=== PATIENT | female | born 1985 | race Caucasian/White ===

== ENCOUNTER 2016-10-01 01:58 | Emergency (ER) | payer MEDICAID, OTHER ==
[2016-10-01 02:17] VITALS: TEMP 97.5
--- NOTE | 2016-10-01 02:17 | C.PDOC ---
History Of Present Illness 31 year old female presents to the ED with complaints of chest palpitations. Patient states she took espresso today but denies chest pain. Chief Complaint (Nursing): Palpitations History Per: Patient History/Exam Limitations: no limitations Onset/Duration Of Symptoms: Hrs Current Symptoms Are (Timing): Still Present Recent travel outside of the [place]: No Past Medical History Reviewed: Historical Data, Nursing Documentation, Vital Signs Vital Signs: Last Vital Signs Temp 97.5 F L 10/01/16 02:07 Pulse 120 H 10/01/16 02:37 Resp 18 10/01/16 02:07 BP 141/89 10/01/16 02:07 Pulse Ox 100 10/01/16 02:47 - Medical History PMH: Anxiety, Seizures (LAST SEIZURE 02/2015) Family History: States: Unknown Family Hx - Social History Hx Alcohol Use: Yes Hx Substance Use: No - Immunization History Hx Tetanus Toxoid Vaccination: No Hx Influenza Vaccination: No Hx Pneumococcal Vaccination: No Review Of Systems Constitutional: Negative for: Fever, Chills, Sweats Cardiovascular: Positive for: Palpitations. Negative for: Chest Pain Respiratory: Negative for: Cough, Shortness of Breath Gastrointestinal: Negative for: Nausea, Vomiting, Abdominal Pain, Diarrhea Physical Exam - Physical Exam Appears: Non-toxic, No Acute Distress, Other (Patient is anxious and nervous upon examination ) Skin: Warm, Dry Head: Atraumatic Oral Mucosa: Moist Neck: Normal ROM, No Midline Cervical Tenderness, No Paracervical Tenderness, Supple Chest: Symmetrical, No Deformity Cardiovascular: No Murmur, Other (tachycardic ) Respiratory: No Rales, No Rhonchi, No Stridor, No Wheezing Gastrointestinal/Abdominal: Soft, No Tenderness, No Distention, No Guarding, No Rebound Extremity: Normal ROM, No Tenderness Neurological/Psych: Oriented x3 ED Course And Treatment - Laboratory Results Result Diagrams: 10/01/16 02:31 10/01/16 02:31 ECG: Interpreted By Me, Viewed By Me ECG Rhythm: Sinus Tachycardia, ST/T Changes, Nonspecific Changes ECG Interpretation: No Acute Changes Interpretation Of ECG: Sinus tachycardia, non-spc ST_T changes infero-lateral leads, abnormal tracings Rate From EC O2 Sat by Pulse Oximetry: 100 (room air ) Pulse Ox Interpretation: Normal Disposition Counseled Patient/Family Regarding: Diagnosis - Disposition Referrals: [facility] [Outside] Disposition: HOME/ ROUTINE Disposition Time: 03:41 Condition: IMPROVED Instructions: Palpitations (ED), Anxiety (ED) - POA Present On Arrival: None - Clinical Impression Clinical Impression: Palpitations, Anxiety - Scribe Statement The provider has reviewed the documentation as recorded by the Scribe Kelly Durant All medical record entries made by the Scribe were at my direction and personally dictated by me. I have reviewed the chart and agree that the record accurately reflects my personal performance of the history, physical exam, medical decision making, and the department course for this patient. I have also personally directed, reviewed, and agree with the discharge instructions and disposition.
[2016-10-01 02:37] LABS: BASO % 0.9 % (0.0-2.0); EOS # 0.1 K/uL (0.0-0.7); EOS % 1.9 % (0.0-4.0); HEMATOCRIT 42.1 % (34.0-47.0); LYMPH # 2.2 K/uL (1.0-4.3); LYMPH % 46.2 % (20.0-40.0); MEAN CELL VOLUME 91.9 fL (81.0-99.0); MEAN CORPUSCULAR HEMOGLOBIN 30.7 pg (27.0-31.0); MEAN CORPUSCULAR HGB CONC 33.4 g/dL (33.0-37.0); MEAN PLATELET VOLUME 9.7 fL (7.2-11.7); MONO # 0.3 K/uL (0.0-0.8); MONO % 6.9 % (0.0-10.0); NRBC % 0.1 % (0.0-2.0); RED CELL DISTRIBUTION WIDTH 13.5 % (11.5-14.5); WHITE BLOOD COUNT 4.7 K/uL (4.8-10.8)
[2016-10-01 02:43] LABS: CHLORIDE 102 mmol/L (98-107); POTASSIUM 2.9 mmol/L (3.6-5.2); SODIUM 138 mmol/L (132-148)
[2016-10-01 02:45] LABS: GFR AFRICAN-AMERICAN > 60
[2016-10-01 02:46] LABS: ALKALINE PHOSPHATASE 62 U/L (38-126); ALT/SGPT 45 U/L (9-52); AST/SGOT 35 U/L (14-36); BILIRUBIN,TOTAL 0.5 mg/dL (0.2-1.3); BLOOD UREA NITROGEN 9 mg/dL (7-17); CARBON DIOXIDE 20 mmol/L (22-30); GLUCOSE,RANDOM 88 mg/dL (65-105); TOTAL PROTEIN 7.8 g/dL (6.3-8.3)
[2016-10-01 02:47] LABS: CALCIUM 9.1 mg/dl (8.6-10.4)
[2016-10-01] MEDS ORDERED: Potassium Chloride 20 mEq/15 ml LIQ UD PO STA (02:48)
[2016-10-01 02:49] LABS: RBC URINE 1 /hpf (0-3); URINE BILIRUBIN NEGATIVE (NEGATIVE); URINE BLOOD NEGATIVE (NEGATIVE); URINE COLOR Yellow (YELLOW); URINE GLUCOSE (UA) NORMAL (Normal); URINE KETONE NEGATIVE (NEGATIVE); URINE LEUKOCYTE ESTERASE NEG Leu/uL (Negative); URINE PROTEIN NEGATIVE (NEGATIVE); URINE UROBILINOGEN NORMAL mg/dL (0.2-1.0); WBC URINE 1 /hpf (0-5)
[2016-10-01 02:51] LABS: ALB/GLOB RATIO 1.4 (1.0-2.1)
[2016-10-01] MEDS ORDERED: Potassium Chloride 20 mEq ER Tab PO ONE (03:06)
[2016-10-01 03:57] VITALS: BP 120/70; PULSE 90; RESP 14; O2SAT 99
== END 2016-10-01 03:57 | disposition home or self-care (01) ==
LOC: C.ER 01:58
DX: F41.9 Anxiety disorder, unspecified (principal); R00.2 Palpitations